=== PATIENT | female | born 1965 | race Caucasian/White ===

== ENCOUNTER → 2020-11-06 08:28 | Outpatient (CLI) | payer OTHER, SELFPAY ==
[2020-11-06 09:57] LABS: Add Manual Diff / Slide Review NO; Basophils Absolute Auto 0 /uL (0-100); Eosinophils Absolute Auto 200 /uL (0-450); Eosinophils Percent Auto 3.5 % (2-4); Hematocrit 40.5 % (36-46); Hemoglobin 13.2 g/dL (12.0-16.0); Lymphocytes Absolute Auto 1800 /uL (1100-4500); Mean Corpuscular HGB Conc 32.6 % (30-36); Mean Corpuscular Hemoglobin 27.9 PG (26-34); Mean Corpuscular Volume 85.5 fL (80-100); Monocytes Absolute Auto 300 /uL (0-900); Monocytes Percent Auto 7.6 % (3-14); Neutrophils Absolute Auto 2100 /uL (1500-7000); Neutrophils Percent Auto 46.9 % (50-75); Platelet Count 280 X10^3/uL (150-400); Red Blood Cell Count 4.74 X10^6/uL (4.0-5.2); White Blood Cell Count 4.5 X10^3/uL (4.5-11.0)
[2020-11-06 10:07] LABS: Hemoglobin A1C% w Est Avg Glu 5.6 % (4.0-6.0)
[2020-11-06 10:10] LABS: Iron 68 ug/dL (37-170)
[2020-11-06 10:16] LABS: Alanine Aminotransferase 11 IU/L (<35); Albumin Globulin Ratio 1.2 (1.0-2.8); Alkaline Phosphatase 59 U/L (38-126); Aspartate Aminotransferase 21 IU/L (14-36); BUN Creatinine Ratio 14.9 (6-22); Bilirubin Total 0.5 mg/dL (0.2-1.3); Blood Urea Nitrogen 14 mg/dL (7-17); Calcium 9.4 mg/dL (8.4-10.2); Carbon Dioxide 25 mmol/L (22-32); Chloride 106 mmol/L (98-107); Cholesterol 198 mg/dL (140-199); Estimated Glomerular Filt Rate > 60.0 mL/min (>60); Globulin 3.4 g/dL (1.7-4.1); Glucose 91 mg/dL (70-100); HDL Cholesterol 64 mg/dL (40-60); HEMOLYSIS < 15 (0-50); LDL Cholesterol Calculated 119 mg/dL (<100); Sodium 137 mmol/L (137-145); Total Protein 7.4 g/dL (6.3-8.2); Triglycerides 75 mg/dL (35-150)
[2020-11-06 10:19] LABS: Percent Iron Saturation 26 % (15-50); Total Iron Binding Capacity 263 ug/dL (265-497)
[2020-11-06 10:28] LABS: Vitamin D 25 Hydroxy (D3) 33.2 ng/mL (30.0-100.0)
[2020-11-06 10:43] LABS: Thyroid Stimulating Hormone 1.65 uIU/mL (0.47-4.68)
[2020-11-06 10:50] LABS: Ferritin 65 ng/mL (11-264)
[2020-11-06 11:20] LABS: Folate 9.3 ng/mL (2.76-20.0); Vitamin B12 483 pg/mL (239-931)
[2020-11-10 09:18] LABS: Vitamin B1 108.1 nmol/L (66.5-200.0)
== END ==
PROVIDERS: PCP Family Medicine; Referring Provider Surgery; Visit Provider Surgery
DX: E63.9 Nutritional deficiency, unspecified (principal); K90.9 Intestinal malabsorption, unspecified; Z98.84 Bariatric surgery status
CPT/HCPCS: 36415; 80053; 80061; 82306; 82607; 82728; 82746; 83036; 83540; 83550; 84425; 84443; 85025

== ENCOUNTER → 2020-11-23 16:15 | Outpatient (CLI) | payer OTHER, SELFPAY ==
[2020-11-23 18:35] LABS: Magnesium 2.2 mg/dL (1.6-2.3)
== END ==
PROVIDERS: PCP Family Medicine; Referring Provider Physician Assistant; Visit Provider Physician Assistant
DX: E63.9 Nutritional deficiency, unspecified (principal); K90.9 Intestinal malabsorption, unspecified
CPT/HCPCS: 36415; 83735

== ENCOUNTER → 2020-12-26 17:32 | Outpatient (CLI) | payer OTHER, SELFPAY ==
[2020-12-26 18:57] LABS: COVID19 -Nasal RAPID Negative (Negative)
== END ==
PROVIDERS: PCP Family Medicine; Visit Provider Student in an Organized Health Care Education/Training Program
DX: Z20.822 Contact with and (suspected) exposure to COVID-19 (principal)
CPT/HCPCS: 87635

== ENCOUNTER → 2021-01-01 11:33 | Outpatient (CLI) | payer OTHER, SELFPAY ==
[2021-01-01 12:39] LABS: COVID19 -Nasal RAPID Negative (Negative)
== END ==
PROVIDERS: PCP Family Medicine; Visit Provider Nurse Practitioner
DX: Z20.822 Contact with and (suspected) exposure to COVID-19 (principal)
CPT/HCPCS: 87635

== ENCOUNTER → 2021-02-06 14:20 | Outpatient (CLI) | payer OTHER, SELFPAY ==
[2021-02-06 15:49] LABS: Free T3, Triiodothyronine Free 4.03 pg/mL (2.77-5.27); Free T4, Direct Thyroxine 1.06 ng/dL (0.78-2.19)
[2021-02-06 16:02] LABS: Thyroid Stimulating Hormone 1.54 uIU/mL (0.47-4.68)
[2021-02-06 16:20] LABS: Vitamin B12 494 pg/mL (239-931)
[2021-02-07 08:14] LABS: Thyroid Peroxidase Antibodies 10 IU/mL (0-34)
[2021-02-07 09:15] LABS: Fibrinogen Activity 320 mg/dL (193-507)
== END ==
PROVIDERS: PCP Family Medicine; Referring Provider Naturopath; Visit Provider Naturopath
DX: E03.9 Hypothyroidism, unspecified (principal); R53.83 Other fatigue; E63.9 Nutritional deficiency, unspecified
CPT/HCPCS: 36415; 82533; 82542; 82607; 82627; 84439; 84443; 84481; 85384; 86376

== ENCOUNTER → 2021-03-07 10:14 | Outpatient (CLI) | payer OTHER, SELFPAY | PROVIDERS: PCP Family Medicine; Referring Provider Internal Medicine; Visit Provider Internal Medicine | DX: Z23 Encounter for immunization (principal) | CPT/HCPCS: 90471; 90686 ==